=== PATIENT | male | born 1985 | race African-American/Black ===

== ENCOUNTER 2017-07-06 08:25 | Emergency (ER) | payer MEDICAID ==
[~2017-07-06] VITALS: Ht 180.3 cm; Wt 99.8 kg
[~2017-07-06 08:25] MED LIST: PHEN100C70; PHEN100C70 PO
[2017-07-06] MEDS ORDERED: LEVETIRACETAM INJ 500 MG in D5W 5% 100 ML IV ONE (09:45)
[2017-07-06 10:06] LABS: Albumin 4.1 g/dL (3.4-5.0); BUN/Creatinine Ratio 11.3; Bilirubin, Total 0.4 mg/dL (0.2-1.0); Calcium 8.7 mg/dL (8.5-10.1); Potassium 4.7 mmol/L (3.5-5.1); Total Protein 8.5 g/dL (6.4-8.2)
[2017-07-06 10:22] VITALS: BP 120/75
[2017-07-06 10:30] LABS: Alcohol, Urine < 3.0 mg/dL (0-5); Amphetamine Screen, Urine NEGATIVE (NEGATIVE); Barbiturate Scree,Urine NEGATIVE (NEGATIVE); Benzodiazephine Screen, Urine NEGATIVE (NEGATIVE); Cannabinoid Screen, Urine POSITIVE (NEGATIVE); Cocaine Screen, Urine NEGATIVE (NEGATIVE); Opiate Scree,Urine NEGATIVE (NEGATIVE); Phencyclidine Screen, Urine NEGATIVE (NEGATIVE)
== END 2017-07-06 11:25 | disposition home or self-care (01) ==
LOC: ER 08:25 → EDBD 08:25 → ER 11:25
DX: R56.9 Unspecified convulsions (principal); I10 Essential (primary) hypertension; Z83.3 Family history of diabetes mellitus; Z82.49 Family history of ischemic heart disease and other diseases of the circulatory system
CPT/HCPCS: 36415; 80053; 80307; 94761; 96365; 99284; J1953; J7060

== ENCOUNTER 2017-10-29 18:41 | Emergency (ER) | payer MEDICAID ==
[~2017-10-29] VITALS: Ht 180.3 cm; Wt 102.1 kg
[2017-10-29 19:52] LABS: Eosinophils # (auto) 0.1 uL; Eosinophils % (auto) 0.6 % (0.0-7.0); Neutrophils # (auto) 8.1 uL
[2017-10-29 20:00] LABS: Basophils # (auto) 0.1 uL; Basophils % (auto) 1.1 % (0.0-2.0); Hematocrit 47.7 % (41.0-53.0); Hemoglobin 15.1 g/dL (13.5-17.5); Lymphocytes % (auto) 18.1 % (10.0-50.0); Mean Corpuscular Hemoglobin 23.4 pg (28.0-32.0); Mean Corpuscular Hgb Conc. 31.7 g/dL (32.0-36.0); Mean Corpuscular Volume 73.7 fL (80.0-100.0); Monocytes # (auto) 0.8 uL; Monocytes % (auto) 7.3 % (0.0-12.0); Neutrophils % (auto) 72.9 % (37.0-80.0); Nucleated Red Blood Cells % 0.3 %; Platelet Count (auto) 120 10^3/uL (140-450); Red Blood Cells 6.47 10^6/uL (4.5-5.90); Red Cell Distribution Width 16.3 % (11.8-14.3); White Blood Cell 11.1 10^3/uL (4.4-10.8)
[2017-10-29 20:01] VITALS: BP 119/74
[2017-10-29] MEDS ORDERED: LEVETIRACETAM INJ 1,000 MG in D5W 5% 100 ML IV ONE (20:15)
[2017-10-29 20:48] LABS: Chloride 106 mmol/L (98-107); Potassium 3.8 mmol/L (3.5-5.1); Sodium 138 mmol/L (136-145)
[2017-10-29 20:49] LABS: Alanine Aminotransferase 51 U/L (16-61); Alkaline Phosphatase 95 U/L (45-117); Anion Gap 16 (5-15); Aspartate Aminotransferase 31 U/L (15-37); BUN/Creatinine Ratio 10.4; Blood Urea Nitrogen 14 mg/dL (7-18); Calcium 8.9 mg/dL (8.5-10.1); Carbon Dioxide 16 mmol/L (21-32); GFR African American 78 mL/min; GFR Non-African American 64 mL/min; Glucose 141 mg/dL (74-106)
[2017-10-29 20:50] LABS: Albumin 4.1 g/dL (3.4-5.0); Bilirubin, Total 0.3 mg/dL (0.2-1.0); Total Protein 9.1 g/dL (6.4-8.2)
== END 2017-10-29 21:40 | disposition home or self-care (01) ==
LOC: EDUNIT# 18:41 → ER 18:51
DX: G40.909 Epilepsy, unspecified, not intractable, without status epilepticus (principal); I10 Essential (primary) hypertension
CPT/HCPCS: 36415; 70450; 80053; 84484; 85025; 93005; 94761; 96365; 99285; J1953; J7060

== ENCOUNTER 2018-03-10 13:35 | Emergency (ER) | payer MEDICAID ==
[~2018-03-10] VITALS: Ht 180.3 cm; Wt 113.4 kg
[2018-03-10] MEDS: LORazepam 2MG/ML-1ML VIAL IV ONE (16:17)
[2018-03-10] MEDS: LEVETIRACETAM INJ 1,000 MG in D5W 5% 100 ML IV ONE (16:22)
[2018-03-10 17:11] VITALS: BP 142/62
== END 2018-03-10 16:28 | disposition home or self-care (01) ==
LOC: EDBD 13:35 → ER 13:38
DX: R56.9 Unspecified convulsions (principal); I10 Essential (primary) hypertension
CPT/HCPCS: 96365; 96375; 99284; J1953; J2060; J7060

== ENCOUNTER 2018-04-03 09:04 | Emergency (ER) | payer MEDICAID ==
[~2018-04-03] VITALS: Ht 177.8 cm; Wt 99.8 kg
[2018-04-03] MEDS ORDERED: SODIUM CHLORIDE 0.9% 1,000 ML IV ONE (10:33)
[2018-04-03] MEDS ORDERED: LORazepam 2MG/ML-1ML VIAL IV ONE (10:45)
[2018-04-03 11:01] LABS: Basophils # (auto) 0.1 uL; Eosinophils # (auto) 0 uL; Monocytes # (auto) 0.4 uL
[2018-04-03 11:05] LABS: Basophils % (auto) 0.9 % (0.0-2.0); Eosinophils % (auto) 0.3 % (0.0-7.0); Hematocrit 47.2 % (41.0-53.0); Lymphocytes # (auto) 1.3 uL; Lymphocytes % (auto) 13.5 % (10.0-50.0); Mean Corpuscular Hemoglobin 23.5 pg (28.0-32.0); Mean Corpuscular Hgb Conc. 31.7 g/dL (32.0-36.0); Mean Corpuscular Volume 74.1 fL (80.0-100.0); Monocytes % (auto) 4.3 % (0.0-12.0); Neutrophils # (auto) 7.9 uL; Nucleated Red Blood Cells % 0.1 %; Platelet Count (auto) 109 10^3/uL (140-450); Red Blood Cells 6.38 10^6/uL (4.5-5.90); Red Cell Distribution Width 15.9 % (11.8-14.3); White Blood Cell 9.7 10^3/uL (4.4-10.8)
[2018-04-03 11:21] LABS: Calcium 8.7 mg/dL (8.5-10.1); Potassium 4.3 mmol/L (3.5-5.1)
[2018-04-03 11:24] LABS: BUN/Creatinine Ratio 12.1; Bilirubin, Total 0.3 mg/dL (0.2-1.0); Total Protein 8.2 g/dL (6.4-8.2)
[2018-04-03 14:25] LABS: Alcohol, Urine < 3.0 mg/dL (0-5); Amphetamine Screen, Urine NEGATIVE (NEGATIVE); Barbiturate Scree,Urine NEGATIVE (NEGATIVE); Benzodiazephine Screen, Urine NEGATIVE (NEGATIVE); Cannabinoid Screen, Urine POSITIVE (NEGATIVE); Cocaine Screen, Urine NEGATIVE (NEGATIVE); Opiate Scree,Urine NEGATIVE (NEGATIVE); Phencyclidine Screen, Urine NEGATIVE (NEGATIVE)
[2018-04-03 15:29] VITALS: BP 137/70
== END 2018-04-03 16:16 | disposition home or self-care (01) ==
LOC: ER 09:04 → EDBD 09:04 → EDUNIT# 09:04 → ER 16:16
DX: E83.41 Hypermagnesemia (principal); G40.909 Epilepsy, unspecified, not intractable, without status epilepticus; F12.10 Cannabis abuse, uncomplicated; I10 Essential (primary) hypertension
CPT/HCPCS: 36415; 71046; 80053; 80185; 80307; 82542; 83735; 84443; 85025; 94761; 96361; 96374; 99285; J2060

== ENCOUNTER 2018-05-07 09:35 | Emergency (ER) | payer MEDICAID ==
[~2018-05-07] VITALS: Ht 180.3 cm; Wt 102.1 kg
[2018-05-07 09:58] VITALS: BP 132/67
[2018-05-07] MEDS ORDERED: LEVETIRACETAM 500 MG TAB PO ONE (10:15)
[2018-05-07 10:28] LABS: Basophils # (auto) 0 uL; Eosinophils # (auto) 0 uL; Lymphocytes # (auto) 2.2 uL; Monocytes # (auto) 0.6 uL
[2018-05-07 10:29] LABS: Basophils % (auto) 0.4 % (0.0-2.0); Eosinophils % (auto) 0.5 % (0.0-7.0); Hematocrit 50.8 % (41.0-53.0); Hemoglobin 15.5 g/dL (13.5-17.5); Lymphocytes % (auto) 29.4 % (10.0-50.0); Mean Corpuscular Hemoglobin 23.6 pg (28.0-32.0); Mean Corpuscular Hgb Conc. 30.6 g/dL (32.0-36.0); Mean Corpuscular Volume 77.1 fL (80.0-100.0); Monocytes % (auto) 8.4 % (0.0-12.0); Neutrophils # (auto) 4.6 uL; Neutrophils % (auto) 61.3 % (37.0-80.0); Nucleated Red Blood Cells % 0.1 %; Platelet Count (auto) 144 10^3/uL (140-450); Red Blood Cells 6.58 10^6/uL (4.5-5.90); Red Cell Distribution Width 16.5 % (11.8-14.3); White Blood Cell 7.5 10^3/uL (4.4-10.8)
[2018-05-07 11:28] LABS: Alanine Aminotransferase 42 U/L (16-61); Albumin 4.2 g/dL (3.4-5.0); Alkaline Phosphatase 91 U/L (45-117); Anion Gap 17 (5-15); Aspartate Aminotransferase 30 U/L (15-37); Bilirubin, Total 0.6 mg/dL (0.2-1.0); Blood Urea Nitrogen 16 mg/dL (7-18); Calcium 9.1 mg/dL (8.5-10.1); Carbon Dioxide 12 mmol/L (21-32); Chloride 108 mmol/L (98-107); GFR African American 71 mL/min; GFR Non-African American 59 mL/min; Glucose 84 mg/dL (74-106); Potassium 4.4 mmol/L (3.5-5.1); Sodium 137 mmol/L (136-145); Total Protein 8.8 g/dL (6.4-8.2)
[2018-05-07 12:43] LABS: Alcohol, Urine < 3.0 mg/dL (0-5); Amphetamine Screen, Urine NEGATIVE (NEGATIVE); Barbiturate Scree,Urine NEGATIVE (NEGATIVE); Benzodiazephine Screen, Urine NEGATIVE (NEGATIVE); Cannabinoid Screen, Urine POSITIVE (NEGATIVE); Cocaine Screen, Urine NEGATIVE (NEGATIVE); Opiate Scree,Urine NEGATIVE (NEGATIVE); Phencyclidine Screen, Urine NEGATIVE (NEGATIVE)
[2018-05-07 12:50] LABS: Urine Bacteria NONE SEEN /hpf (None Seen); Urine Blood 1+ /uL (Negative); Urine Mucus FEW (None Seen); Urine Specific Gravity 1.017 (1.001-1.035); Urine WBC 1 /hpf (0 - 3)
== END 2018-05-07 12:17 | disposition home or self-care (01) ==
LOC: ER 09:35 → EDBD 09:35 → ER 12:17
DX: G40.909 Epilepsy, unspecified, not intractable, without status epilepticus (principal); I10 Essential (primary) hypertension
CPT/HCPCS: 36415; 70450; 80053; 80307; 81001; 85025; 93005; 99285; J7030

== ENCOUNTER 2018-09-20 10:43 | Emergency (ER) | payer MEDICAID ==
[~2018-09-20] VITALS: Ht 182.9 cm; Wt 99.8 kg
[2018-09-20 11:41] LABS: Basophils # (auto) 0 uL; Eosinophils # (auto) 0 uL; Eosinophils % (auto) 0.6 % (0.0-7.0); Mean Corpuscular Hemoglobin 23.6 pg (28.0-32.0); Neutrophils # (auto) 3.3 uL; Nucleated Red Blood Cells % 0.1 %
[2018-09-20 11:43] LABS: Basophils % (auto) 0.5 % (0.0-2.0); Hematocrit 45.5 % (41.0-53.0); Hemoglobin 14.4 g/dL (13.5-17.5); Lymphocytes # (auto) 2.1 uL; Lymphocytes % (auto) 35.7 % (10.0-50.0); Mean Corpuscular Hgb Conc. 31.6 g/dL (32.0-36.0); Mean Corpuscular Volume 74.6 fL (80.0-100.0); Monocytes # (auto) 0.4 uL; Monocytes % (auto) 7.1 % (0.0-12.0); Neutrophils % (auto) 56.1 % (37.0-80.0); Platelet Count (auto) 172 10^3/uL (140-450); Red Blood Cells 6.09 10^6/uL (4.5-5.90); Red Cell Distribution Width 16.7 % (11.8-14.3); White Blood Cell 5.9 10^3/uL (4.4-10.8)
[2018-09-20 11:58] LABS: Anion Gap 13 (5-15); Blood Urea Nitrogen 15 mg/dL (7-18); Calcium 9.1 mg/dL (8.5-10.1); Carbon Dioxide 17 mmol/L (21-32); Chloride 107 mmol/L (98-107); Glucose 98 mg/dL (74-106); Magnesium 2.8 mg/dL (1.6-2.6); Potassium 4.1 mmol/L (3.5-5.1); Sodium 137 mmol/L (136-145)
[2018-09-20 12:05] LABS: Alanine Aminotransferase 48 U/L (16-61); Alkaline Phosphatase 84 U/L (45-117); Aspartate Aminotransferase 28 U/L (15-37); BUN/Creatinine Ratio 11.1; Bilirubin, Total 0.3 mg/dL (0.2-1.0); GFR African American 77 mL/min; GFR Non-African American 64 mL/min; Total Protein 8.3 g/dL (6.4-8.2)
[2018-09-20 14:07] VITALS: BP 116/69
[2018-09-20] MEDS ORDERED: LEVETIRACETAM 500 MG TAB PO ONE (16:00)
== END 2018-09-20 16:41 | disposition home or self-care (01) ==
LOC: EDBD 10:43 → ER 10:43
DX: R56.9 Unspecified convulsions (principal); I10 Essential (primary) hypertension; Z79.899 Other long term (current) drug therapy
CPT/HCPCS: 36415; 70450; 80053; 83735; 84484; 85025; 93005

== ENCOUNTER 2019-01-01 17:02 | Emergency (ER) | payer MEDICAID ==
[~2019-01-01] VITALS: Ht 180.3 cm; Wt 104.3 kg
[2019-01-01] MEDS ORDERED: LORazepam 2MG/ML-1ML VIAL IV ONE (19:00)
[2019-01-01 19:11] LABS: Basophils # (auto) 0.1 uL; Basophils % (auto) 0.8 % (0.0-2.0); Eosinophils # (auto) 0 uL; Eosinophils % (auto) 0.3 % (0.0-7.0); Hematocrit 50.2 % (41.0-53.0); Hemoglobin 15.3 g/dL (13.5-17.5); Lymphocytes # (auto) 1.6 uL; Lymphocytes % (auto) 25.2 % (10.0-50.0); Mean Corpuscular Hemoglobin 23.7 pg (28.0-32.0); Mean Corpuscular Hgb Conc. 30.5 g/dL (32.0-36.0); Mean Corpuscular Volume 77.8 fL (80.0-100.0); Monocytes # (auto) 0.3 uL; Monocytes % (auto) 5.5 % (0.0-12.0); Neutrophils # (auto) 4.2 uL; Neutrophils % (auto) 68.2 % (37.0-80.0); Nucleated Red Blood Cells % 0.1 %; Platelet Count (auto) 116 10^3/uL (140-450); Red Blood Cells 6.45 10^6/uL (4.5-5.90); Red Cell Distribution Width 17.5 % (11.8-14.3); White Blood Cell 6.2 10^3/uL (4.4-10.8)
[2019-01-01 19:21] LABS: Albumin 3.9 g/dL (3.4-5.0); Anion Gap 14 (5-15); Blood Urea Nitrogen 17 mg/dL (7-18); Carbon Dioxide 17 mmol/L (21-32); Chloride 109 mmol/L (98-107); Potassium 4.2 mmol/L (3.5-5.1); Sodium 140 mmol/L (136-145)
[2019-01-01 19:26] LABS: Alanine Aminotransferase 43 U/L (16-61); Alkaline Phosphatase 90 U/L (45-117); Aspartate Aminotransferase 30 U/L (15-37); Bilirubin, Total 0.3 mg/dL (0.2-1.0); GFR African American 74 mL/min; GFR Non-African American 61 mL/min; Glucose 123 mg/dL (74-106); Total Protein 8.4 g/dL (6.4-8.2)
[2019-01-01 19:38] LABS: BUN/Creatinine Ratio 12.1
[2019-01-01 19:41] VITALS: BP 109/71
== END 2019-01-01 20:20 | disposition home or self-care (01) ==
LOC: EDUNIT# 17:02 → ER 17:02 → EDBD 17:02 → ER 20:20
DX: G40.909 Epilepsy, unspecified, not intractable, without status epilepticus (principal); I10 Essential (primary) hypertension
CPT/HCPCS: 36415; 70450; 80053; 82542; 84484; 85025; 96374; 99284; J2060

== ENCOUNTER 2019-03-01 16:16 | Emergency (ER) | payer MEDICAID ==
[~2019-03-01] VITALS: Ht 180.3 cm; Wt 104.3 kg
[2019-03-01] MEDS ORDERED: LORazepam 2MG/ML-1ML VIAL IV ONE (16:45)
[2019-03-01] MEDS ORDERED: LEVETIRACETAM INJ 1,000 MG in D5W 5% 100 ML IV ONE (16:45)
[2019-03-01 18:55] VITALS: BP 131/87
== END 2019-03-01 19:44 | disposition home or self-care (01) ==
LOC: ER 16:16 → EDBD 16:16 → ER 19:44
DX: R56.9 Unspecified convulsions (principal); I10 Essential (primary) hypertension; F12.90 Cannabis use, unspecified, uncomplicated
CPT/HCPCS: 93005; 94761; 96365; 96375; 99283; J1953; J2060; J7060

== ENCOUNTER 2019-04-01 11:19 | Emergency (ER) | payer MEDICAID ==
[~2019-04-01] VITALS: Ht 177.8 cm; Wt 103.4 kg
[2019-04-01] MEDS ORDERED: LEVE750T3 (11:56)
[2019-04-01] MEDS ORDERED: LEVETIRACETAM INJ 1,500 MG in D5W 5% 100 ML IV ONE (13:00)
[2019-04-01 13:39] LABS: Basophils # (auto) 0 uL; Basophils % (auto) 0.4 % (0.0-2.0); Eosinophils # (auto) 0 uL; Hematocrit 46.7 % (41.0-53.0); Monocytes # (auto) 0.6 uL; Neutrophils # (auto) 8.2 uL; White Blood Cell 9.7 10^3/uL (4.4-10.8)
[2019-04-01 13:41] LABS: Hemoglobin 15.1 g/dL (13.5-17.5); Lymphocytes # (auto) 0.7 uL; Lymphocytes % (auto) 7.6 % (10.0-50.0); Mean Corpuscular Hgb Conc. 32.3 g/dL (32.0-36.0); Mean Corpuscular Volume 74.3 fL (80.0-100.0); Monocytes % (auto) 6.6 % (0.0-12.0); Neutrophils % (auto) 85.4 % (37.0-80.0); Nucleated Red Blood Cells % 0.1 %; Platelet Count (auto) 199 10^3/uL (140-450); Red Blood Cells 6.28 10^6/uL (4.5-5.90); Red Cell Distribution Width 16.4 % (11.8-14.3)
[2019-04-01 14:07] LABS: BUN/Creatinine Ratio 10.1; Calcium 8.8 mg/dL (8.5-10.1); Potassium 4.1 mmol/L (3.5-5.1)
[2019-04-01 14:10] LABS: Bilirubin, Total 0.3 mg/dL (0.2-1.0); Total Protein 8.5 g/dL (6.4-8.2)
[2019-04-01 14:39] VITALS: BP 122/73
== END 2019-04-01 14:52 | disposition home or self-care (01) ==
LOC: ER 11:19 → EDBD 11:19 → ER 14:52
DX: S00.512A Abrasion of oral cavity, initial encounter (principal); G40.409 Other generalized epilepsy and epileptic syndromes, not intractable, without status epilepticus; Z91.19 Patient's noncompliance with other medical treatment and regimen; I10 Essential (primary) hypertension; X58.XXXA Exposure to other specified factors, initial encounter; Y93.89 Activity, other specified; Y92.89 Other specified places as the place of occurrence of the external cause; Y99.8 Other external cause status
CPT/HCPCS: 36415; 80053; 85025; 96365; 99283; J1953; J7060

== ENCOUNTER 2019-05-01 12:29 | Emergency (ER) | payer MEDICAID ==
[~2019-05-01] VITALS: Ht 182.9 cm; Wt 99.8 kg
[~2019-05-01 12:29] MED LIST changes: +LEVE750T3
[2019-05-01 12:42] VITALS: BP 154/84
== END 2019-05-01 14:14 | disposition left against medical advice (07) ==
LOC: EDBD 12:29 → ER 12:31
DX: R56.9 Unspecified convulsions (principal); Z53.21 Procedure and treatment not carried out due to patient leaving prior to being seen by health care provider

== ENCOUNTER 2020-06-18 12:41 | Emergency (ER) | payer MEDICAID ==
[~2020-06-18] VITALS: Ht 180.3 cm; Wt 136.1 kg
[2020-06-18] MEDS ORDERED: LORazepam 2MG/ML-1ML VIAL IV ONE (13:15)
[2020-06-18 13:26] VITALS: BP 140/68
[2020-06-18] MEDS ORDERED: levETIRAcetam 500 MG TAB PO ONE (13:45)
[2020-06-18] MEDS ORDERED: LORazepam 2MG/ML-1ML VIAL IM ONE (13:45)
== END 2020-06-18 14:09 | disposition home or self-care (01) ==
LOC: EDBD 12:41 → ER 12:41 → EDUNIT# 12:41 → ER 14:09
DX: R56.9 Unspecified convulsions (principal); I10 Essential (primary) hypertension; F12.10 Cannabis abuse, uncomplicated
CPT/HCPCS: 70450; 96372; 99284; J2060; J7060

== ENCOUNTER 2021-01-02 13:06 | Emergency (ER) | payer MEDICAID ==
[~2021-01-02] VITALS: Ht 180.3 cm; Wt 104.3 kg
[~2021-01-02 13:06] MED LIST changes: +PHEN100C; +PHEN100C PO; -PHEN100C70; -PHEN100C70 PO
[2021-01-02 13:15] VITALS: BP 144/77
== END 2021-01-02 15:40 | disposition left against medical advice (07) ==
LOC: ER 13:06 → EDBD 13:06 → ER 15:40
DX: R56.9 Unspecified convulsions (principal); Z53.21 Procedure and treatment not carried out due to patient leaving prior to being seen by health care provider
CPT/HCPCS: 70450; 71250; 72125; 74176

== ENCOUNTER 2021-02-05 08:59 | Emergency (ER) | payer MEDICAID ==
[~2021-02-05] VITALS: Ht 177.8 cm; Wt 104.3 kg
[2021-02-05 08:59] VITALS: BP 134/79
== END 2021-02-05 10:26 | disposition left against medical advice (07) ==
LOC: ER 08:59 → EDBD 08:59 → ER 10:26
DX: R56.9 Unspecified convulsions (principal); Z79.899 Other long term (current) drug therapy